=== PATIENT | female | born 1975 | race Caucasian/White ===

== ENCOUNTER 2016-09-06 06:17 | Emergency (ER) | payer MEDICARE, OTHER ==
[~2016-09-06] VITALS: Ht 137.2 cm; Wt 65.9 kg
[~2016-09-06 06:17] MED LIST: TNFMISC
[2016-09-06] MEDS ORDERED: [UNRECOGNIZED DRUG - REMARK] PO (06:28)
[2016-09-06 07:14] VITALS: BP 105/72
[2016-09-06] MEDS ORDERED: PENICILLIN V POTASSIUM 500 MG TABLET PO ONE (07:15)
[2016-09-06] MEDS ORDERED: OxyCODONE HCL/ACETAMINOPHEN 5-325 MG TABLET PO ONE (07:15)
[2016-09-06] MEDS ORDERED: ONDANSETRON HCL 4 MG TABLET PO ONE (07:15)
== END 2016-09-06 07:16 | disposition home or self-care (01) ==
LOC: EMS 06:18
DX: K02.9 Dental caries, unspecified (principal)
CPT/HCPCS: 99284; Q0162

== ENCOUNTER 2019-10-04 07:16 | Inpatient (IN) | payer MEDICARE, OTHER ==
[~2019-10-04] VITALS: Ht 154.9 cm; Wt 63.6 kg
[~2019-10-04 07:16] MED LIST changes: -TNFMISC; +[UNRECOGNIZED DRUG - REMARK] PO
[2019-10-04] MEDS ORDERED: IBUP-2071 PO (07:20)
[2019-10-04] MEDS ORDERED: SODIUM CHLORIDE 0.9% 1,000 ML IV ONE ×2 (08:15→10:00)
[2019-10-04] MEDS ORDERED: ACETAMINOPHEN 500 MG TABLET PO ONE (08:15)
[2019-10-04 08:56] LABS: BASOPHILS % (AUTO) 0.2 % (0.0-2.0); EOSINOPHILS % (AUTO) 0 % (1.0-6.0); HEMATOCRIT 32.5 % (36-46); HEMOGLOBIN 11.4 g/dL (12.0-16.0); LYMPHOCYTES # (AUTO) 1.3 K/uL (1.0-4.8); LYMPHOCYTES % (AUTO) 22.2 % (22.0-44.0); MEAN CORPUSCULAR VOLUME 95 fL (80-100); MONOCYTES # (AUTO) 0.4 K/uL (0.1-1.0); MONOCYTES % (AUTO) 6.2 % (2.0-9.0); NEUTROPHILS # (AUTO) 4.2 K/uL (1.8-7.7); NEUTROPHILS % (AUTO) 71.4 % (40.0-70.0); PLATELET COUNT (AUTO) 283 K/uL (150-450); RED BLOOD CELL COUNT(AUTO) 3.44 MIL/uL (4.00-5.20); RED CELL DISTRIBUTION WIDTH 13.1 % (11.5-14.5)
[2019-10-04 09:05] LABS: APPEARANCE,URINE CLOUDY (CLEAR); BILIRUBIN,URINE NEGATIVE (NEGATIVE); GLUCOSE, URINE (UA) NEGATIVE (NEGATIVE); KETONES,URINE TRACE mg/dL (NEGATIVE); LEUKOCYTE ESTERASE ,URINE SMALL (NEGATIVE); NITRATE,URINE NEGATIVE (NEGATIVE); OCCULT BLOOD,URINE TRACE (NEGATIVE); PROTEIN,URINE POS 1+ (NEGATIVE); UROBILINOGEN,URINE 0.2 mg/dL (<=1.0)
[2019-10-04 09:16] LABS: BACTERIA,URINE Moderate /HPF (None Seen); RBC,URINE 0-2 /HPF (0-2); SQUAMOUS EPITHELIAL CELL,UR Many /LPF (None Seen)
[2019-10-04 09:36] LABS: ANION GAP 10 mmol/L (8-16); CALCIUM, TOTAL 8.3 mg/dL (8.8-10.5); CARBON DIOXIDE 26 mmol/L (22-29); CHLORIDE 106 mmol/L (98-107); CREATINE KINASE, TOTAL ONLY 182 U/L (26-192); CREATININE 0.82 mg/dL (0.60-1.30); GLOMERULAR FILTR. RATE CALC > 60 mL/min (>60); GLUCOSE,RANDOM 104 mg/dL (70-110); SODIUM SERUM 142 mmol/L (136-145); UREA NITROGEN, BLOOD 10 mg/dL (7-18)
[2019-10-04 09:39] LABS: POTASSIUM 2.9 mmol/L (3.5-5.1)
[2019-10-04] MEDS ORDERED: CefTRIAXone 1 GM/DEXTROSE 50 ML IV ONE (09:45)
[2019-10-04] MEDS ORDERED: ASCORBIC ACID 500 MG TABLET PO ONE (09:45)
[2019-10-04] MEDS ORDERED: POTASSIUM CHLORIDE 20 MEQ ER TABLET PO ONE (09:45)
[2019-10-04] MEDS ORDERED: DOXYCYCLINE HYCLATE 100 MG in DEXTROSE 5%-WATER 100 ML IV ONE (09:45)
[2019-10-04] MEDS ORDERED: ZINC SULFATE 220 MG CAPSULE PO ONE (09:45)
[2019-10-04] MEDS ORDERED: POTASSIUM CHL 10 MEQ/WATER 50 ML IV PRN (10:00)
[2019-10-04] MEDS ORDERED: ACETAMINOPHEN 325 MG TABLET PO PRN (10:00)
[2019-10-04] MEDS ORDERED: POTASSIUM CHLORIDE 20 MEQ ER TABLET PO PRN (10:00)
[2019-10-04] MEDS ORDERED: 0.9% SODIUM CHLORIDE 10 ML SYRINGE IVP PRN (10:00)
[2019-10-04] MEDS ORDERED: MAGNESIUM HYDROXIDE SUSPENSION 30 ML UDCUP PO PRN (10:15)
[2019-10-04 10:43] LABS: C-REACTIVE PROTEIN QUANT 2.28 mg/dL (0.00-0.30); FERRITIN 117 ng/mL (8-252); LACTATE DEHYDROGENASE 273 U/L (81-234)
[2019-10-04 11:00] LABS: ERYTHROCYTE SEDIMENTATION RATE 93 MM/HR (0-20)
[2019-10-04] MEDS: AZITHROMYCIN 500 MG/NS 250 ML IV SCH (11:42)
[2019-10-04] MEDS ORDERED: ONDANSETRON HCL 4 MG/2 ML VIAL IVP ONE (12:00)
[2019-10-04] MEDS ORDERED: ABAC1TAB15 PO (13:00)
[2019-10-04 16:03] VITALS: BP 109/43
[2019-10-04] MEDS: HEPARIN SODIUM,PORCINE 5,000 UNITS/ML VIAL SQ SCH (16:48)
[2019-10-04 21:00] VITALS: BP 112/66
[2019-10-04] MEDS: ACETAMINOPHEN 325 MG TABLET PO PRN (21:36)
[2019-10-04] MEDS: ONDANSETRON HCL 4 MG/2 ML VIAL IVP PRN (21:36)
[2019-10-05] MEDS: HEPARIN SODIUM,PORCINE 5,000 UNITS/ML VIAL SQ SCH ×4 (00:38→23:37)
[2019-10-05] MEDS ORDERED: MELATONIN 3 MG TABLET PO PRN (00:45)
[2019-10-05 03:00] VITALS: BP 122/69
[2019-10-05 05:02] VITALS: BP 119/75
[2019-10-05 07:39] VITALS: BP 110/67
[2019-10-05] MEDS: FAMOTIDINE 20 MG TABLET PO SCH (08:34)
[2019-10-05] MEDS: ABACAVIR SULFATE 300 MG TABLET PO SCH (10:00)
[2019-10-05] MEDS: CefTRIAXone 1 GM/DEXTROSE 50 ML IV SCH (10:46)
[2019-10-05] MEDS: DOLUTEGRAVIR SODIUM 50 MG TABLET PO SCH (10:47)
[2019-10-05] MEDS: AZITHROMYCIN 500 MG/NS 250 ML IV SCH (11:57)
[2019-10-05 16:45] VITALS: BP 109/74
[2019-10-05 17:09] VITALS: BP 109/74
[2019-10-05] MEDS: ACETAMINOPHEN 325 MG TABLET PO PRN ×2 (17:42→23:37)
[2019-10-05 20:00] VITALS: BP 106/72
[2019-10-06] MEDS: HYDROCODONE/ACETAMINOPHEN 5-325 MG TABLET PO PRN ×2 (00:07→08:40)
[2019-10-06 04:00] VITALS: BP 110/73
[2019-10-06] MEDS: DOLUTEGRAVIR SODIUM 50 MG TABLET PO SCH (08:30)
[2019-10-06] MEDS: FAMOTIDINE 20 MG TABLET PO SCH (08:31)
[2019-10-06] MEDS: HEPARIN SODIUM,PORCINE 5,000 UNITS/ML VIAL SQ SCH ×2 (08:31→16:26)
[2019-10-06] MEDS: CefTRIAXone 1 GM/DEXTROSE 50 ML IV SCH (08:34)
[2019-10-06] MEDS: ONDANSETRON HCL 4 MG/2 ML VIAL IVP PRN (08:40)
[2019-10-06 08:56] VITALS: BP 111/55
[2019-10-06] MEDS: ABACAVIR SULFATE 300 MG TABLET PO SCH (09:00)
[2019-10-06] MEDS: AZITHROMYCIN 500 MG/NS 250 ML IV SCH (11:08)
[2019-10-06] MEDS: ALPRAZolam 0.5 MG TABLET PO PRN (12:29)
[2019-10-06 16:14] VITALS: BP 112/79
[2019-10-06 20:11] VITALS: BP 107/67
[2019-10-06] MEDS: ACETAMINOPHEN 325 MG TABLET PO PRN (20:13)
[2019-10-07] MEDS: HEPARIN SODIUM,PORCINE 5,000 UNITS/ML VIAL SQ SCH ×3 (00:04→16:00)
[2019-10-07 04:40] VITALS: BP 120/74
[2019-10-07] MEDS: FAMOTIDINE 20 MG TABLET PO SCH (09:06)
[2019-10-07] MEDS: ABACAVIR SULFATE 300 MG TABLET PO SCH (09:07)
[2019-10-07] MEDS: DOLUTEGRAVIR SODIUM 50 MG TABLET PO SCH (09:07)
[2019-10-07 09:24] VITALS: BP 108/64
[2019-10-07] MEDS: ACETAMINOPHEN 325 MG TABLET PO PRN (09:29)
[2019-10-07] MEDS: CefTRIAXone 1 GM/DEXTROSE 50 ML IV SCH (10:30)
[2019-10-07] MEDS ORDERED: SODIUM CHLORIDE 0.9% 250 ML IV ONE (10:35)
[2019-10-07] MEDS: AZITHROMYCIN 500 MG/NS 250 ML IV SCH (11:48)
[2019-10-07 11:59] VITALS: BP 98/70
[2019-10-07] MEDS ORDERED: LEVO-72 PO (12:04)
[2019-10-07] MEDS: ONDANSETRON HCL 4 MG/2 ML VIAL IVP PRN (12:30)
[2019-10-07] MEDS: ALPRAZolam 0.5 MG TABLET PO PRN (12:42)
== END 2019-10-07 17:56 | disposition home or self-care (01) | DRG 177 ==
LOC: EMS 07:20 → 6N 10:02
PROVIDERS: ADMIT Internal Medicine; ATTEND Internal Medicine
DX: U07.1 COVID-19 (principal); J12.89 Other viral pneumonia; E87.6 Hypokalemia; F41.1 Generalized anxiety disorder; Z79.899 Other long term (current) drug therapy
CPT/HCPCS: 82728; 83605; 83615; 83735; 84132; 85651; 86140; 87040; 87086; J0456; J0696; J1644; J2405; J3490; J7030; J7050; J7060; 36415-L1; 36415-TC; 71045-TC; U0003-CS